=== PATIENT | female | born 1985 | race Caucasian/White ===

== ENCOUNTER 2020-01-12 10:39 | Emergency (ER) | payer SELFPAY ==
[2020-01-12 10:41] VITALS: BP 116/74; PULSE 82; RESP 17; TEMP 36.2; O2SAT 99
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
[2020-01-12 10:49] VITALS: RESP 17
--- NOTE | 2020-01-12 11:15 | RT.EKG_ITS ---
APPROVED REPORT Exam: Resting ECG Patient Location: E HR:77 bpm ECG Measurements Heart Rate 77 AXIS WI 128 P 64 QRSd 87 QRS 80 QT 391 T 57 QTc 444 Conclusion Sinus rhythm...normal P axis, V-rate 60- 99 I have reviewed and interpreted ECG and agree with software generated interpretation.
[2020-01-12 11:48] LABS: Abs Immature Grans 0.06 10^3/uL (0.0-0.06); Absolute Basophil Count 0.07 10^3/uL (0.0-0.2); Absolute Eosinophil Count 0.22 10^3/uL (0.0-0.7); Absolute Lymphocyte Count 2.27 10^3/uL (1.2-3.4); Basophils % 0.6; Eosinophils % 1.8; HCT 42.6 % (36.0-46.0); Immature Grans % 0.5; Lymphocytes % 18.8; MCHC 32.9 % (32.0-36.0); MCV 97.5 fL (80-95); MPV 9.8 fL (8.0-11.0); Monocytes % 5.5; Neutrophils % 72.8; Nucleated RBC 0 %; Platelet Count 299 10^3/uL (130-400); RBC 4.37 10^6/uL (3.93-5.22); RDW 12.5 % (11.7-14.6); RDW-SD 45.1 fL
[2020-01-12 11:53] LABS: Absolute Monocyte Count 0.67 10^3/uL (0.1-0.8); Absolute Neutrophil Count 8.81 10^3/uL (1.2-6.7)
[2020-01-12 12:07] LABS: ALT 15 U/L (14-59); AST 12 U/L (15-37); Alkaline Phosphatase 56 U/L (46-116); Anion Gap 9.2 mmol/L (3-11); BUN 12 mg/dL (7-18); Bilirubin, Total 0.2 mg/dL (0.2-1.0); CO2 25.8 mmol/L (21.0-32.0); CREATININE 0.78 mg/dL (0.55-1.02); Calcium 8.7 mg/dL (8.5-10.1); Chloride 107 mmol/L (98-107); Glucose 74 mg/dL (74-106); Potassium 4.1 mmol/L (3.5-5.1); Sodium 142 mmol/L (136-145); Total Protein 7.6 g/dL (6.4-8.2)
== END 2020-01-12 12:26 | disposition home or self-care (01) ==
LOC: ER 12:23
PROVIDERS: Emergency Provider Physician Assistant
DX: F10.120 Alcohol abuse with intoxication, uncomplicated (principal); Y90.2 Blood alcohol level of 40-59 mg/100 ml; G40.909 Epilepsy, unspecified, not intractable, without status epilepticus
CPT/HCPCS: 36415; 80053; 93005; 99285; 80320; 85025; 93010; 99283

== ENCOUNTER 2020-01-25 13:17 | Emergency (ER) | payer OTHER, SELFPAY ==
--- NOTE | 2020-01-25 13:15 | RT.EKG_ITS ---
APPROVED REPORT Exam: Resting ECG Patient Location: E HR:69 bpm ECG Measurements Heart Rate 69 AXIS AR 117 P 54 QRSd 79 QRS 82 QT 413 T 64 QTc 441 Conclusion Sinus rhythm...normal P axis, V-rate 60- 99
[2020-01-25 13:22] VITALS: BP 111/89; PULSE 73; RESP 18; TEMP 36.2; O2SAT 96
[2020-01-25 13:45] LABS: Bilirubin Negative (Negative); Blood Trace-intact (Negative); Clarity Clear (Clear); Glucose Negative (Negative); Ketones Negative (Negative); Leukocyte Esterase Negative (Negative); Nitrite Negative (Negative); Specific Gravity <= 1.005 (1.005-1.025); Urobilinogen 0.2 EU/dL (Up TO 0.2)
--- NOTE | 2020-01-25 13:45 | DI.CT_ITS ---
EXAM: CT HEAD WO CLINICAL HISTORY: Syncope. TECHNIQUE: Imaging Protocol: Axial computed tomography images with coronal and sagittal reformatted images were created and reviewed COMPARISON: No exams were available for comparison FINDINGS: There is a large area of encephalomalacia seen extending from the anterior right temporal lobe throug h the right frontal parietal region. There is compensatory dilatation of the right lateral ventricle , consistent with an old infarct. No acute infarct, mass or hemorrhage is seen. The visualized port ions of the sinuses and mastoid air cells appear clear. There is no skull fracture. . IMPRESSION: large old area of a of right-sided encephalomalaciaNo acute intracranial process. RADIATION DOSE DELIVERED: 638.39mGy.cm Total DLP DATA REPOSITORY: All CT scans at this facility are submitted to the National Radiology Data Registry (NRDR) Dose Index Registry (DIR) with the [employer] (A[employer]). RADIATION OPTIMIZATION: All CT scans at this facility use at least one of these dose optimization te chniques: automated exposure control; mA and/or kV adjustment per patient size (includes targeted exa ms where dose is matched to clinical indication); or iterative reconstruction.
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
[2020-01-25 13:54] LABS: Bacteria Rare HPF (Negative); C & S Indicated? No; Casts Negative LPF (Negative); Crystals Negative HPF (Negative); Epithelial Cells Few HPF (Negative); Mucus Negative (Negative); RBC 0-2 HPF (0-2); WBC 0-2 HPF (0-5)
[2020-01-25 14:23] LABS: Abs Immature Grans 0.02 10^3/uL (0.0-0.06); Absolute Basophil Count 0.03 10^3/uL (0.0-0.2); Absolute Eosinophil Count 0.14 10^3/uL (0.0-0.7); Absolute Lymphocyte Count 2.07 10^3/uL (1.2-3.4); Absolute Monocyte Count 0.42 10^3/uL (0.1-0.8); Absolute Neutrophil Count 4.42 10^3/uL (1.2-6.7); Basophils % 0.4; HCT 41.8 % (36.0-46.0); HGB 13.9 g/dL (11.2-15.7); Immature Grans % 0.3; Lymphocytes % 29.2; MCH 32.3 pg (27.0-33.0); MCHC 33.3 % (32.0-36.0); MCV 97.2 fL (80-95); MPV 10.1 fL (8.0-11.0); Monocytes % 5.9; Neutrophils % 62.2; Nucleated RBC 0 %; Platelet Count 305 10^3/uL (130-400); RDW 12.4 % (11.7-14.6); RDW-SD 44.7 fL
[2020-01-25 14:36] LABS: ALT 16 U/L (14-59); AST 10 U/L (15-37); Albumin 3.7 g/dL (3.4-5.0); Alkaline Phosphatase 52 U/L (46-116); Anion Gap 8.5 mmol/L (3-11); BUN 9 mg/dL (7-18); Bilirubin, Total 0.2 mg/dL (0.2-1.0); CO2 26.5 mmol/L (21.0-32.0); CREATININE 0.77 mg/dL (0.55-1.02); Chloride 106 mmol/L (98-107); Glucose 85 mg/dL (74-106); Magnesium 2.1 mg/dL (1.8-2.4); Potassium 3.7 mmol/L (3.5-5.1); Sodium 141 mmol/L (136-145); Total Protein 7.1 g/dL (6.4-8.2)
[2020-01-25 14:38] LABS: *AMPHETAMINES SCREEN URINE Negative (Negative); *BARBITURATES SCREEN URINE Negative (Negative); *BENZODIAZEPINES SCREEN URINE Negative (Negative); Cannabinoids THC POSITIVE (Negative); Cocaine Screen,Urine Negative (Negative); METHADONE URINE SCREEN Negative (Negative); OPIATES URINE SCREEN Negative (Negative)
[2020-01-25 14:40] LABS: Tricyclic Antidepressants Negative (Negative)
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
--- NOTE | 2020-01-25 16:09 | NUR.NOTE ---
Nursing Note:Talking on the phone to [employer]. Dinner tray ordered. FRANCISE nurse will be here in approx. 1/2 hour.
--- NOTE | 2020-01-25 16:40 | NUR.NOTE ---
Nursing Note:Patient eloped. Stated to staff she was going out for a cigarette and catch the bus. Patient has a hospital gown on under her coat. Left her clothing in room 5.
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
--- NOTE | 2020-01-25 17:54 | NUR.NOTE ---
Nursing Note:SANE exam remains in progress.
--- NOTE | 2020-01-25 18:20 | NUR.NOTE ---
Nursing Note: SANE exam complete, hot dinner tray to patient. Patient talking to Boat [employer].
--- NOTE | 2020-01-25 18:30 | NUR.NOTE ---
Nursing Note:Patient requesting STD testing as well Robert Espinoza notified. Remains on phone with Organic Chemist [employer].
[2020-01-25] MEDS: metroNIDAZOLE 500 MG TAB 2000 MG PO (19:52)
[2020-01-25] MEDS: Azithromycin 250 MG TAB 2000 MG PO (19:52)
[2020-01-25] MEDS: Hepatitis B Virus Vaccine 20 MCG/ML VIAL IM (19:59)
[2020-01-25] MEDS: Gentamicin 20 MG/2 ML VIAL 240 MG IM (20:29)
[2020-01-25] MEDS: Acetaminophen 500 MG TAB 1000 MG PO (20:31)
[2020-01-28 10:45] LABS: HIV-1/2 Ag & Ab Screen Negative (Negative)
[2020-01-28 11:30] LABS: Syphilis Serology (RPR) Negative (Negative)
[2020-01-28 23:53] LABS: HBe Antibody Negative (Negative)
--- NOTE | 2020-03-01 05:23 | NUR.NOTE ---
per request of [place] [facility], reviewed that pt had received SANE exam at this visit.Nursing Note:
== END 2020-01-25 20:40 | disposition home or self-care (01) ==
PROVIDERS: Registered Nurse Emergency; Emergency Provider Physician Assistant
DX: R55 Syncope and collapse (principal); M25.552 Pain in left hip; T76.21XA Adult sexual abuse, suspected, initial encounter; Y07.9 Unspecified perpetrator of maltreatment and neglect; Z59.0 Homelessness
CPT/HCPCS: 36415; 80053; 80307; 87389; 90471; 93005; 96372; 99285; 70450; 81003; 81015; 83735; 85025; 86592; 86707; 93010; 99284; J1580

== ENCOUNTER 2020-02-12 20:31 | Emergency (ER) | payer SELFPAY ==
[2020-02-12 20:45] VITALS: BP 111/83; PULSE 102; RESP 16; TEMP 37.2; O2SAT 98
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
--- NOTE | 2020-02-12 23:12 | NUR.NOTE ---
referral sent to CM for housing/ outpt care/ PCP Establishment. Chanda GONZALES. Nursing Note:
== END 2020-02-12 21:20 | disposition home or self-care (01) ==
PROVIDERS: Emergency Provider Physician Assistant
DX: F10.120 Alcohol abuse with intoxication, uncomplicated (principal); G40.909 Epilepsy, unspecified, not intractable, without status epilepticus
CPT/HCPCS: 99285; 99284

== ENCOUNTER 2020-02-14 21:15 | Emergency (ER) | payer OTHER, SELFPAY ==
[2020-02-14 21:11] VITALS: BP 122/68; PULSE 93; RESP 20; TEMP 36.6; O2SAT 98
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
--- NOTE | 2020-02-14 22:16 | DI.CT_ITS ---
EXAM: CT HEAD CERV SPINE FACIAL WO COMPARISON: CT CT HEAD WO from 01/25/2020 FINDINGS: CT examination of the cervical spine was performed without contrast administration. There is no evidence of acute cervical spine fracture or dislocation. Intervertebral disc spaces are well maintained. Tracheolaryngeal structures appear intact. No cervical mass or adenopathy. Noncontrast cranial CT was performed. There is moderate generalized cerebral atrophy. There is an old right frontotemporoparietal infarct. No evidence of acute intracranial hemorrhage, mass effect, or midline shift. No calvarial fracture. The orbital and temporal bone structures appear intact. Visualized mastoid air cells and paranasal sinuses appear clear. CT examination of the facial bones was also performed. Paranasal sinuses are well aerated. Orbital contents appear intact. No mandibular fracture seen. No for facial fracture identified. IMPRESSION: No evidence of acute cervical spine injury. No evidence of acute intracranial injury. No acute facial fracture seen. RADIATION DOSE DELIVERED: 2,110.49mGy.cm Total DLP 2,110.49mGy.cm Total DLP DATA REPOSITORY: All CT scans at this facility are submitted to the National Radiology Data Registry (NRDR) Dose Index Registry (DIR) with the [employer] (A[employer]). RADIATION OPTIMIZATION: All CT scans at this facility use at least one of these dose optimization te chniques: automated exposure control; mA and/or kV adjustment per patient size (includes targeted exa ms where dose is matched to clinical indication); or iterative reconstruction.
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
--- NOTE | 2020-02-14 22:47 | NUR.NOTE ---
Nursing Note: Pt arrives to ED accompanied by EMS and [facility] police. Pt intermittently crying and swearing. Pt reports you can't put a needle in my quadricep, you will need everyone to hold my legs and my arms down because you ain't putting that shit in me. Pt refuses blood draw, reports fear of needles. Pt tells this nurse that pt will smoke cigarette, nurse responds that pt unable to do that at this time. Pt states, none of you cocksuckers can do anything to me, I will smoke a cigarette in this room. I don't care. I will blow this whole hospital up the [place] if you don't let me go out for a smoke. I'm sure something in this hospital room can create a spark. I need to smoke before they take me to [facility]. Pt reports I took a few hits of weed earlier and reports drinking alcohol today. Provider updated on pt refusal to blood draw.
[2020-02-14 23:06] LABS: *AMPHETAMINES SCREEN URINE Negative (Negative); *BARBITURATES SCREEN URINE Negative (Negative); *BENZODIAZEPINES SCREEN URINE Negative (Negative); Cannabinoids THC POSITIVE (Negative); Cocaine Screen,Urine Negative (Negative); METHADONE URINE SCREEN Negative (Negative); OPIATES URINE SCREEN Negative (Negative)
[2020-02-14 23:14] LABS: Tricyclic Antidepressants Negative (Negative)
[2020-02-14] MEDS: Azithromycin 250 MG TAB 1000 MG PO (23:53)
[2020-02-14] MEDS: metroNIDAZOLE 500 MG TAB 2000 MG PO (23:54)
[2020-02-14 23:55] VITALS: BP 106/65; PULSE 76; RESP 14; TEMP 36.7; O2SAT 99
--- NOTE | 2020-02-15 01:01 | NUR.NOTE ---
Arrived in ER at 2220for pt request of SANE- reviewed process with pt who then consented to exam. Reviewed medications, discharge instructions and recommended follow up. Pt declined to speak with [facility] at time of exam but was provided with information for follow up if desired. Nursing Note:
== END 2020-02-15 00:15 | disposition other institution (70) ==
PROVIDERS: Emergency Provider Student in an Organized Health Care Education/Training Program
DX: F10.120 Alcohol abuse with intoxication, uncomplicated (principal); S00.511A Abrasion of lip, initial encounter; Y04.2XXA Assault by strike against or bumped into by another person, initial encounter; T74.21XA Adult sexual abuse, confirmed, initial encounter
CPT/HCPCS: 80307; 99285; 70450; 70486; 72125; 80320; 99284